=== PATIENT | female | born 1970 | race Caucasian/White ===

== ENCOUNTER 2017-11-12 17:11 | Emergency (ER) | payer BC, SELFPAY ==
[2017-11-12 17:11] VITALS: BP 199/126; PULSE 95; RESP 14; TEMP 36.7; O2SAT 98; BMI 23.1
--- NOTE | 2017-11-12 17:32 | EKG12_ITS ---
Test Reason : HTN Blood Pressure : / mmHG Vent. Rate : 090 BPM Atrial Rate : 090 BPM P-R Int : 136 ms QRS Dur : 086 ms QT Int : 372 ms P-R-T Axes : 073 072 058 degrees QTc Int : 455 ms Normal sinus rhythm Nonspecific T wave abnormality Abnormal ECG Confirmed by YURY MUÑOZ, CALLIE ([id number]), editor managing newspaper AMY BARBOZA ([id number]) on 11/13/2017 2:43:08 PM Referred By: KAY Confirmed By:CALLIE COTTON MD
--- NOTE | 2017-11-12 17:34 | NURSING ---
NO OLD EKGS
--- NOTE | 2017-11-12 17:35 | ED.VISSUMM ---
- ER Visit Summary Date of Service: 11/12/17 Chief Complaint: High blood pressure History of Present Illness: The patient is a 47 F who is otherwise healthy but has not seen a primary care physician in 5 years presents with elevated blood pressure. The patient was actually at her [employer]. She was going to have her Mirena IUD removed and replaced. They took her blood pressure and it was 220 systolic. She states that she has never had documented elevated blood pressure. She states that it has been taken before and has been elevated at 140s-150s. She is totally asymptomatic. She denies chest pain, shortness of breath, weakness, numbness, headache, or edema. Physical Examination: Vital signs reviewed General: Well-nourished, well-developed Head: Normocephalic, atraumatic Eyes: Pupils equal and reactive, extraocular muscles intact Neck, supple, no lymphadenopathy Heart: Regular rate and rhythm Respiratory: No distress, clear bilaterally Abdomen: Soft, nontender, nondistended, no peritoneal signs Back: Nontender Extremities: Nontender, no edema, no cords Skin: Normal color no rash Neuro: Alert and oriented, no focal or lateralizing deficits Test Results: EKG demonstrates sinus rhythm without acute ischemic change. Screening labs are unremarkable. Emergency Department Course and Treatment: The patient presents with elevated blood pressure without symptoms. She was acutely asymptomatic on arrival. It sounds as if she has been having elevated blood pressure for the past few years and just has not seen her primary care. I did obtain screening labs drawn unremarkable. Her EKG does not show acute ischemic change. There is some evidence of mild LVH. She has had no chest pain. She has had no headache. I have no suspicion for hypertensive emergency or other dangerous symptoms. The patient was given clonidine and had some decrease in her blood pressure. I am going to start her on low-dose hydrochlorthiazide. She will monitor her blood pressure at home. She was counseled on concerning symptoms. I will have her follow-up with her primary care next week for recheck and determination of the medications be long-term. She is comfortable with this plan of care. Treatment Plan: [] Disposition: Discharge Impression: 1. Hypertension This note was generated with [employer] software. It may contain incorrect words, spelling, and punctuation that were not noted in review of the chart prior to signing ED Disposition - Plan for ED Patient: Chief Complaint: Hypertension Instructions: ED Hypertension New Begin Tx Prescriptions: Hydrochlorothiazide [Hctz] 25 mg PO DAILY #30 tab Referrals: Julio Allen MD [Primary Care Provider] - 5-7 Days
[2017-11-12 18:08] VITALS: BP 201/97; PULSE 91
[2017-11-12] MEDS: cloNIDine HCl 0.1 MG Tablet 0.2 MG PO (18:08)
[2017-11-12 18:12] LABS: Absolute Lymphocyte Count 1.83 X10^3/ul (0.83-4.51); Absolute Neutrophil Count 8.8 X10^3/uL (2.0-7.7); Basophil# 0.04 X10^3/uL; Basophil% 0.4 % (0-1); Eosinophil# 0.04 X10^3/uL; Eosinophils% 0.4 % (0-5); Hematocrit 43.2 % (37-47); Hemoglobin 14.5 g/dl (12.0-15.0); Lymphocyte # 1.83 X10^3/ul (4.0); Lymphocyte % 16.1 % (19-41); Mean Corp Hgb Conc 33.6 g/gl (32-36); Mean Corpuscular Hgb 33.9 pg (27.0-32.0); Mean Corpuscular Volume 100.9 fL (81-99); Mean Platelet Vol. 10.5 fl (6.2-12.0); Monocyte# 0.71 X10^3/uL; Monocyte% 6.2 % (0-10); Neutrophil # 8.75 X10^3/uL (2.7-7.7); Neutrophil % 76.6 % (47-70); Platelet Count 216 K/mm3 (150-450); RBC Distribution Width CV 12.4 % (11.6-14.6); RBC Distribution Width SD 45.8 fl (35.1-43.9); Red Blood Count 4.28 M/mm3 (4.2-5.4); White Blood Count 11.4 K/mm3 (4.4-11.0)
[2017-11-12 18:13] LABS: POSITIVE COUNT NO; POSITIVE DIFFERENTIAL NO; POSITIVE MORPHOLOGY NO
[2017-11-12 18:25] LABS: Anion Gap 10 (5-15); BUN 17 mg/dL (7-18); BUN/Creat Ratio 26.9 RATIO (10-20); Calcium,Total 9.3 mg/dL (8.5-10.1); Chloride 107 mmol/L (98-107); Creatinine, Serum 0.63 mg/dL (0.55-1.02); EST Glomerular Filtration Rate 107 mL/min (>60); Est Glom Filt Rate - Afr Amer 129 mL/min (>60); Glucose 96 mg/dL (74-106); Potassium 3.7 mmol/L (3.5-5.1); Sodium Level 143 mmol/L (136-145)
[2017-11-12 18:41] VITALS: BP 191/105; PULSE 83; RESP 19; O2SAT 97
[2017-11-12 19:12] VITALS: BP 174/87; PULSE 75; RESP 18; O2SAT 96
== END 2017-11-12 19:13 | disposition home or self-care (01) ==
LOC: ED 18:35
PROVIDERS: Emergency Provider Emergency Medicine; Family Provider Family Medicine; PCP Family Medicine
DX: I10 Essential (primary) hypertension (principal); Z72.0 Tobacco use
CPT/HCPCS: 80048; 85025; 93005; 99285; A4216

== ENCOUNTER 2017-12-15 10:58 | Emergency (ER) | payer BC, SELFPAY ==
[2017-12-15 11:01] VITALS: BP 130/85; PULSE 98; RESP 18; TEMP 36.6; O2SAT 99; BMI 23.1
--- NOTE | 2017-12-15 11:45 | ED.VISSUMM ---
- ER Visit Summary Date of Service: 12/15/17 Chief Complaint: Rectal pain secondary to hemorrhoids History of Present Illness: The patient is a 47 F presents because of rectal pain for approximately 1 week. 2 weeks ago she had diarrhea for 4 days. She was seen by her PCP and diagnosed with hemorrhoids. She does report blood on the toilet paper. She states she is having difficulty going because she complains of severe pain with bowel movement. She has been taking stool softener and when she does go her stool is soft. There is no history of mucus in the stool. There is no history of ulcerative colitis or Crohn's disease. There is no history of trauma. Patient denies fever, chills night sweats. Please read written note for complete detail Physical Examination: Blood pressure slightly elevated 130/85. This may be secondary to pain. HEENT exam is unremarkable. Heart is regular without murmur, gallop or rub. S1 and S2 are normal. Lungs are clear to auscultation with good movement of air bilaterally. Abdomen is soft nontender with no hepatosplenomegaly. Bowel sounds are present normal. Rectal exam reveals prior hemorrhoids. There is fluctuance between the anus and vagina (perineum). Digital exam because of severe pain. There is fluctuance noted and findings are consistent with a perirectal/perianal abscess. There are no fissures or fistulas noted. Stool is brown. Test Results: None were obtained Emergency Department Course and Treatment: Patient was informed that she has an abscess. The treatment for an abscess is I&D. Since she has not eaten since last evening has not had any drink in approximately 2 hours patient was consented for deep procedural sedation with propofol. There is no history of allergy to soy products or egg products. She has had no prior complications with anesthesia. Patient and given opportunity ask questions and none were asked. They were told of the risk benefits of propofol. After patient had desired effect the area was anesthetized with 1% lidocaine for local infiltration. An incision was made with 10 blade. There was minimal amount of purulent material. Blunt dissection was undertaken. Cavity was irrigated. A wick was placed. She will receive her first dose of Augmentin in the emergency department and discharged with a prescription for Augmentin. She was referred to Dr. Susan Metz Treatment Plan: Wound check in 2-3 days, opiate analgesia and antibiotic Disposition: Discharged home in stable and improved condition Impression: 1. Perirectal abscess 2. Deep cessation with propofol (10 minutes) 3. I&D of perirectal abscess 4. External hemorrhoids This note was generated with [employer] dictation software. It may contain incorrect words, spelling, and punctuation that were not noted in review of the chart prior to signing ED Disposition - Plan for ED Patient: Disposition: Home or Assisted Living Chief Complaint: Other, Pain/Inj Instructions: ED Hemorrhoids, ED Leora Anal Abscess IandD Prescriptions: Oxycodone HCl/Acetaminophen [Percocet 5/325] 1 tab PO Q4H PRN PRN 2 Days #10 tab PRN Reason: Pain Amoxicillin/Potassium Clav [Augmentin 875-125 Tablet] 1 ea PO BID #14 tab Referrals: Julio Allen MD [Primary Care Provider] - Susan Giles MD [STAFF PHYSICIAN] - 2 Days for wound check
[2017-12-15] MEDS: Ondansetron ODT 4 MG Tablet PO (11:47)
[2017-12-15 11:55] VITALS: BP 149/98; PULSE 89; RESP 27; O2SAT 99
[2017-12-15 11:57] VITALS: BP 105/53; BP 112/51; BP 115/71; BP 147/82; BP 149/98; PULSE 77; PULSE 78; PULSE 79; PULSE 82; PULSE 84; RESP 19; RESP 20; RESP 22; RESP 24; O2SAT 98; O2SAT 99
[2017-12-15 12:09] VITALS: BP 115/71; PULSE 76; RESP 20; O2SAT 98; O2SAT 99
[2017-12-15] MEDS: Propofol 200 MG/20 ML Vial IV BOLUS (12:11)
[2017-12-15 12:16] VITALS: BP 120/66; PULSE 75; RESP 16; O2SAT 100
[2017-12-15 12:30] VITALS: BP 130/79; PULSE 71; RESP 17; O2SAT 98
== END 2017-12-15 12:42 | disposition home or self-care (01) ==
PROVIDERS: Emergency Provider Emergency Medicine; Family Provider Family Medicine; PCP Family Medicine
DX: K61.1 Rectal abscess (principal); K64.4 Residual hemorrhoidal skin tags; I10 Essential (primary) hypertension; E78.00 Pure hypercholesterolemia, unspecified; Z79.899 Other long term (current) drug therapy; Z72.0 Tobacco use
CPT/HCPCS: 46040; 10060; 99152; 99285; J7030

== ENCOUNTER 2018-06-21 08:21 | Day surgery (SDC) | payer BC, SELFPAY ==
[2018-06-21 08:46] VITALS: BP 164/90; PULSE 96; RESP 18; TEMP 37.5; O2SAT 98; BMI 23.1
[2018-06-21 08:55] LABS: Internal QC Validated? YES +Cl - CLEAR BKGD; Pregnancy, Urine Negative Negative
--- NOTE | 2018-06-21 09:24 | PCM.HP.STD ---
History of Present Illness Date of Admission: 06/21/18 The patient is a 48 year old F presents for diagnostic colonoscopy due to blood per rectum, hemorrhoids, history of a perirectal abscess. Patient states she did not have blood for 2 weeks after seeing me in the office and then had it for a couple days but has not had blood again for about another 2 weeks. But she does states she has some left lower abdominal pain that she feels like in the inside of her rectum on the left side that comes and goes is not necessarily related to bowel movements. On exam in the office she did not have any pain on palpation of that side. Patient states her hemorrhoids are about the same. Denies history of a colonoscopy or any family history of colon cancer. Past Medical History Past Medical History (Chronic Problems): Chronic Problems (Last Reviewed 05/21/18 @ 13:36 by Delmy Bland) HTN (hypertension) (Chronic) Medical History: Medical History (Last Reviewed 05/21/18 @ 13:36 by Delmy Bland) Hyperlipidemia (Acute) E78.5 Anal abscess (Acute) K61.0 HTN (hypertension) (Chronic) I10 Allergies No Known Allergies Allergy (Verified 06/17/18 15:26) Home Medications: Ambulatory Orders Medication Instructions Recorded Oxycodone HCl/Acetaminophen 1 tab PO Q4H PRN PRN 2 Days #10 tab 12/15/17 [Percocet 5/325] Rosuvastatin Calcium [Crestor] 5 mg PO QHS 12/15/17 amlodipine 5 mg tablet 5 mg PO DAILY 05/21/18 hydrochlorothiazide 25 mg tablet 25 mg PO DAILY 05/21/18 losartan 100 mg tablet 100 mg PO DAILY 05/21/18 Smoking Status: Current every day smoker Review of Systems Constitutional: Denies: Anorexia Cardiovascular: Denies: Chest Pain Respiratory: Denies: Shortness of Breath Gastrointestinal: Denies: Abdominal Pain, Nausea VTE Information - Inpt Only VTE Present on Admission: No VTE Mechan Device Prophylaxis: None VTE Pharm Prophylaxis ordered?: No Reason prophylaxis not ordered:: Treatment Not Indicated - Physical Exam General: Alert, Oriented x3, Cooperative, No apparent distress HEENT: Atraumatic Lungs: Normal air movement Cardiovascular: Regular rate Abdomen: Soft, Non Tender - No peritoneal signs, Non-Distended Extremities: No clubbing, No cyanosis, No edema Vital Signs Temp Pulse Resp BP Pulse Ox 99.5 F H 96 18 164/90 H 98 06/21/18 08:46 06/21/18 08:46 06/21/18 08:46 06/21/18 08:46 06/21/18 08:46 Oxygen Delivery Method Room Air Weight: 134 lb 14.766 oz Body Mass Index (BMI) 23.1 Laboratory Tests Past 24 Hrs 06/21/18 08:35 Urine Test Negative Assessment/Plan All Active Problems (Last Reviewed 05/21/18 @ 13:36 by Delmy Bland) Hyperlipidemia (Acute) Anal abscess (Acute) 48-year-old female for diagnostic colonoscopy due to blood per rectum, hemorrhoids, history of perirectal abscess 1. Reviewed the procedure along with risks and benefits with the patient and her she had no further questions at this time. Susan Giles M.D. Pager: [phone] [facility] [address] [place] [address], [facility], [address] [place] [address] Office: [phone]
--- NOTE | 2018-06-21 09:27 | HP.PCM_ITS ---
History of Present Illness Date of Admission: 06/21/18 The patient is a 48 year old F presents for diagnostic colonoscopy due to blood per rectum, hemorrhoids, history of a perirectal abscess. Patient states she did not have blood for 2 weeks after seeing me in the office and then had it for a couple days but has not had blood again for about another 2 weeks. But she does states she has some left lower abdominal pain that she feels like in the inside of her rectum on the left side that comes and goes is not necessarily related to bowel movements. On exam in the office she did not have any pain on palpation of that side. Patient states her hemorrhoids are about the same. Denies history of a colonoscopy or any family history of colon cancer. Past Medical History Past Medical History (Chronic Problems): Chronic Problems (Last Reviewed 05/21/18 @ 13:36 by Delmy Bland) HTN (hypertension) (Chronic) Medical History: Medical History (Last Reviewed 05/21/18 @ 13:36 by Delmy Bland) Hyperlipidemia (Acute) E78.5 Anal abscess (Acute) K61.0 HTN (hypertension) (Chronic) I10 Allergies No Known Allergies Allergy (Verified 06/17/18 15:26) Home Medications: Ambulatory Orders Medication Instructions Recorded Oxycodone HCl/Acetaminophen 1 tab PO Q4H PRN PRN 2 Days #10 tab 12/15/17 [Percocet 5/325] Rosuvastatin Calcium [Crestor] 5 mg PO QHS 12/15/17 amlodipine 5 mg tablet 5 mg PO DAILY 05/21/18 hydrochlorothiazide 25 mg tablet 25 mg PO DAILY 05/21/18 losartan 100 mg tablet 100 mg PO DAILY 05/21/18 Smoking Status: Current every day smoker Review of Systems Constitutional: Denies: Anorexia Cardiovascular: Denies: Chest Pain Respiratory: Denies: Shortness of Breath Gastrointestinal: Denies: Abdominal Pain, Nausea VTE Information - Inpt Only VTE Present on Admission: No VTE Mechan Device Prophylaxis: None VTE Pharm Prophylaxis ordered?: No Reason prophylaxis not ordered:: Treatment Not Indicated - Physical Exam General: Alert, Oriented x3, Cooperative, No apparent distress HEENT: Atraumatic Lungs: Normal air movement Cardiovascular: Regular rate Abdomen: Soft, Non Tender - No peritoneal signs, Non-Distended Extremities: No clubbing, No cyanosis, No edema Vital Signs Temp Pulse Resp BP Pulse Ox 99.5 F H 96 18 164/90 H 98 06/21/18 08:46 06/21/18 08:46 06/21/18 08:46 06/21/18 08:46 06/21/18 08:46 Oxygen Delivery Method Room Air Weight: 134 lb 14.766 oz Body Mass Index (BMI) 23.1 Laboratory Tests Past 24 Hrs 06/21/18 08:35 Urine Test Negative Assessment/Plan All Active Problems (Last Reviewed 05/21/18 @ 13:36 by Delmy Bland) Hyperlipidemia (Acute) Anal abscess (Acute) 48-year-old female for diagnostic colonoscopy due to blood per rectum, hemorrhoids, history of perirectal abscess 1. Reviewed the procedure along with risks and benefits with the patient and her she had no further questions at this time. Susan Giles M.D. Pager: [phone] [facility] [address] [place] [address], [facility], [address] [place] [address] Office: [phone]
--- NOTE | 2018-06-21 09:30 | COLBX_PTH ---
PATIENT: TODD BARBOZA LOC: EN U#:[id number] AGE/SX: 48/F ROOM: RE06/21/[address]: Dr. Susan Giles MD : 1970 BED: DIS: 06/21/2018 SPEC #: [id number] RECD: 06/21/18 11:56 STATUS: OLI NOMAN #: [id number] EDE: 06/21/18 09:[address]: Susan Giles DEPT: SURGICAL PATHOLOGY RECD BY: Rubin Kohler ENTERED: 06/21/18 13:05 SP TYPE: COLON BX OTHR DR: Dr. Julio Allen MD Tissues: A - Transverse colon B - Transverse colon Procedures: Surgery Specimen Level IV HEADER OPERATION: Colonoscopy PRE-OP DIAGNOSIS: Bright red blood per rectum; hemorrhoids TISSUE SUBMITTED: A - Proximal transverse polyp biopsy, B - Proximal transverse polyp biopsy #2 MICROSCOPIC DIAGNOSIS A. Proximal transverse polyp, biopsy: Hyperplastic polyp. B. Proximal transverse polyp #2, biopsy: Fragments of hyperplastic polyp. ZAID:[email or web address] 06/22/18 MICROSCOPIC DESCRIPTION Slides are reviewed. GROSS DESCRIPTION A - Received in fixative is one container labeled with the patient's name and designated proximal transverse polyp biopsy. The specimen consists of two irregular fragments of light will soft tissue that in aggregate measure 0.6 x 0.3 x 0.1 cm. The specimen is totally submitted in one cassette. B - Received in fixative is one container labeled with the patient's name and designated proximal transverse polyp #2. The specimen consists of multiple irregular fragments of light will soft tissue that in aggregate measure 1.5 x 0.3 x 0.1 cm. The specimen is totally submitted in one cassette. / ZAID:[email or web address] 06/21/18 TC:1 CPT: 28650 x2
[2018-06-21 10:05] VITALS: BP 164/90; BP 94/60; PULSE 79; RESP 16; TEMP 36.1; O2SAT 99
--- NOTE | 2018-06-21 10:08 | OP.ENDO_ITS ---
Patient Name: Courtney Quinonez Procedure Date: 06/21/2018 9:24 AM Date of : 1970 Age: 48 Procedure: Colonoscopy Indications: Anal bleeding Providers: Susan Giles MD Referring MD: Susan Giles MD Medicines: Monitored Anesthesia Care Patient Profile: Last Colonoscopy: none. The patient's first colonoscopy is today. Complications: No immediate complications. Procedure: Pre-Anesthesia Assessment: - Prior to the procedure, a History and Physical was performed, and patient medications and allergies were reviewed. The patient's tolerance of previous anesthesia was also reviewed. The risks and benefits of the procedure and the sedation options and risks were discussed with the patient. All questions were answered, and informed consent was obtained. Prior Anticoagulants: The patient has taken no previous anticoagulant or antiplatelet agents. ASA Grade Assessment: II - A patient with mild systemic disease. After reviewing the risks and benefits, the patient was deemed in satisfactory condition to undergo the procedure. After I obtained informed consent, the scope was passed under direct vision. Throughout the procedure, the patient's blood pressure, pulse, and oxygen saturations were monitored continuously. The pediatric colonoscope was introduced through the anus and advanced to the cecum, identified by the appendiceal orifice, IC valve and transillumination. The colonoscopy was performed without difficulty. The patient tolerated the procedure well. The quality of the bowel preparation was good. Scope In: 9:34:11 AM Scope Withdrawal Time 0 hours 18 minutes 1 second Scope Out: 10:00:09 AM Total Procedure Duration Time 0 hours 25 minutes 58 seconds Findings: Hemorrhoids were found on perianal exam. Two sessile polyps were found in the proximal transverse colon. The polyps were less than 5 mm in size. These polyps were removed with a cold biopsy forceps. Resection and retrieval were complete. Non-bleeding external and internal hemorrhoids were found during retroflexion and during digital exam. The hemorrhoids were Grade I (internal hemorrhoids that do not prolapse). Impression: - Hemorrhoids found on perianal exam. - Two less than 5 mm polyps in the proximal transverse colon, removed with a cold biopsy forceps. Resected and retrieved. - Non-bleeding external and internal hemorrhoids. Recommendation: - Discharge patient to home. - Continue present medications. - Await pathology results. - Repeat colonoscopy in 3 - 5 years for surveillance based on pathology results. Procedure Code(s): --- Professional --- 48487, Colonoscopy, flexible; with biopsy, single or multiple Diagnosis Code(s): --- Professional --- K64.0, First degree hemorrhoids D12.3, Benign neoplasm of transverse colon (hepatic flexure or splenic flexure) K62.5, Hemorrhage of anus and rectum CPT copyright 2017 [employer]. All rights reserved. The codes documented in this report are preliminary and upon optical instrument repairer review may be revised to meet current compliance requirements. MD Susan Young MD 06/21/2018 10:08:09 AM This report has been signed electronically. Number of Addenda: 0 Note Initiated On: 06/21/2018 9:24 AM
[2018-06-21 10:10] VITALS: BP 164/90; BP 97/62; PULSE 68; RESP 16; O2SAT 100
[2018-06-21 10:15] VITALS: BP 104/65; BP 164/90; PULSE 67; RESP 16; O2SAT 100
[2018-06-21 10:22] VITALS: BP 111/67; BP 164/90; PULSE 65; RESP 16; TEMP 36.4; O2SAT 100
[2018-06-21 10:50] VITALS: BP 164/90
== END 2018-06-21 10:50 | disposition home or self-care (01) ==
LOC: EN 08:21 → AC 08:22
PROVIDERS: Anesthesiology; Family Provider Family Medicine; PCP Family Medicine; Referring Provider Surgery; Visit Provider Surgery
PROC: 0DJD8ZZ Inspection of Lower Intestinal Tract, Via Natural or Artificial Opening Endoscopic (ICD-10-PCS; CPT 45378; principal; 2018-06-21 09:25)
DX: D12.3 Benign neoplasm of transverse colon (principal); K64.0 First degree hemorrhoids; K64.4 Residual hemorrhoidal skin tags; K62.5 Hemorrhage of anus and rectum; I10 Essential (primary) hypertension; E78.5 Hyperlipidemia, unspecified; F17.200 Nicotine dependence, unspecified, uncomplicated; Z79.899 Other long term (current) drug therapy
CPT/HCPCS: 45380; 81025; 88305; J7120

== ENCOUNTER → 2020-06-21 | Outpatient (CLI) | payer BC, SELFPAY | END | disposition home or self-care (01) | LOC: LABSPEC 13:48 | PROVIDERS: Referring Provider Family Medicine; Visit Provider Family Medicine | DX: Z03.818 Encounter for observation for suspected exposure to other biological agents ruled out (principal) | CPT/HCPCS: 87635; U0003 ==

== ENCOUNTER → 2020-07-05 | Outpatient (CLI) | payer BC, SELFPAY | END | disposition home or self-care (01) | LOC: LABSPEC 12:16 | PROVIDERS: Referring Provider Family Medicine; Visit Provider Family Medicine | DX: Z03.818 Encounter for observation for suspected exposure to other biological agents ruled out (principal) | CPT/HCPCS: 87635; U0003 ==